=== PATIENT | male | born 1975 | race Caucasian/White ===

== ENCOUNTER → 2017-11-05 | Emergency (ER) | payer MEDICAID, OTHER ==
[~2017-11-05] VITALS: Ht 180.3 cm; Wt 97.0 kg
[~2017-11-05] MED LIST: METH4TAB3 PO
[2017-11-05 12:38] VITALS: BP 158/92
== END | disposition home or self-care (01) ==
LOC: ER 11:29
DX: M25.561 Pain in right knee (principal); I10 Essential (primary) hypertension; M10.9 Gout, unspecified; Z88.8 Allergy status to other drugs, medicaments and biological substances
CPT/HCPCS: 99283

== ENCOUNTER 2017-11-10 09:04 | Outpatient (CLI) | payer MEDICAID, OTHER ==
[2017-11-10 09:00] VITALS: BP 159/75
== END 2017-11-10 10:00 | disposition home or self-care (01) ==
LOC: ORTHO 09:04
PROVIDERS: ATTEND Nurse Practitioner Family
DX: M10.9 Gout, unspecified (principal); I10 Essential (primary) hypertension; Z56.0 Unemployment, unspecified; Z88.8 Allergy status to other drugs, medicaments and biological substances
CPT/HCPCS: 99213; A4467

== ENCOUNTER 2018-09-24 14:21 | Emergency (ER) | payer MEDICAID, OTHER ==
[~2018-09-24] VITALS: Ht 177.8 cm; Wt 100.0 kg
[2018-09-24] MEDS ORDERED: ondansetron/PF 4mg/2ml inj IV ONE (14:55)
[2018-09-24] MEDS ORDERED: normal saline 1000ML IV soln IVB ONE (14:55)
[2018-09-24 15:13] LABS: BASOPHILS % (AUTO) 0.6 % (0-1); EOSINOPHILS % (AUTO) 0.8 % (0-6); HEMATOCRIT 45.8 % (42.0-52.0); LYMPHOCYTES # (AUTO) 1.5 X10'3 (1.1-4.8); LYMPHOCYTES % (AUTO) 25.5 % (21-51); MEAN CORPUSCULAR HGB CONC 34.9 g/dL (33.0-36.5); MEAN CORPUSCULAR VOLUME 94.6 FL (78-98); MEAN PLATELET VOLUME 6.7 FL (7.4-10.4); MONOCYTES # (AUTO) 0.4 X10'3 (0-0.9); MONOCYTES % (AUTO) 6.5 % (2-12); NEUTROPHILS # (AUTO) 3.9 X10'3 (1.8-7.7); NEUTROPHILS % (AUTO) 66.6 % (42-75); PLATELET COUNT 240 X10'3 (140-440); RED BLOOD COUNT 4.84 X10'6 (4.70-6.10); RED CELL DISTRIBUTION WIDTH 12.7 % (11.5-14.5); WHITE BLOOD COUNT 5.9 X10'3 (4.5-11.0)
[2018-09-24 15:27] LABS: CLARITY,URINE CLEAR (Clear); COLOR,URINE YELLOW (Yellow); GLUCOSE, URINE NEGATIVE (Neg); KETONES,URINE TRACE mg/dl (Neg); LEUKOCYTE ESTERASE ,URINE NEGATIVE (Neg); NITRITES, URINE NEGATIVE (Neg); OCCULT BLOOD,URINE NEGATIVE (Neg); PH,URINE 5.5 (4.8-8.0); PROTEIN,URINE TRACE mg/dl (Neg); UROBILINOGEN,URINE 0.2 E.U/dL (0.2-1.0)
[2018-09-24 15:28] LABS: UA COLLECTION TYPE VOIDED
[2018-09-24 15:33] LABS: BACTERIA,URINE 1+ /HPF (Neg); CAL OXALATE CRYSTALS 1+ /HPF (NEGATIVE); MUCUS STRANDS NONE SEEN /LPF (Neg); RBC,URINE 0-2 /HPF (0-2); SQUAMOUS EPITHELIAL CELL,UR FEW /LPF (FEW); WBC,URINE NONE SEEN /HPF (0-4)
[2018-09-24 15:33] LABS: ALANINE AMINOTRANSFERASE 54 U/L (12-78); ALBUMIN 4.4 G/DL (3.4-5.0); ALBUMIN/GLOBULIN RATIO 1.4 (1.1-1.5); ALKALINE PHOSPHATASE 54 IU/L (46-116); ANION GAP 12 (8-16); ASPARTATE AMINO TRANSFERASE 27 U/L (10-37); BLOOD UREA NITROGEN 9 MG/DL (7-18); BUN/CREATININE RATIO 11.1 (5.4-32.0); CALCIUM 9.1 MG/DL (8.5-10.1); CHLORIDE 100 MMOL/L (99-107); CREATININE 0.81 MG/DL (0.60-1.10); GLUCOSE 119 MG/DL (70-104); LIPASE 172 U/L (73-393); POTASSIUM 3.5 MMOL/L (3.5-5.1); SODIUM 137 MMOL/L (135-145); TOTAL CARBON DIOXIDE 25.2 MMOL/L (24-32); TOTAL PROTEIN 7.5 G/DL (6.4-8.2); eGFR > 90 ML/MIN
[2018-09-24] MEDS ORDERED: PANT20TA2 PO (15:52)
[2018-09-24] MEDS ORDERED: ONDA4TAB6 PO (15:52)
[2018-09-24 16:16] VITALS: BP 187/112
== END 2018-09-24 16:18 | disposition home or self-care (01) ==
LOC: ER 14:21
DX: K29.00 Acute gastritis without bleeding (principal); I10 Essential (primary) hypertension; M10.9 Gout, unspecified; Z88.8 Allergy status to other drugs, medicaments and biological substances; Z79.899 Other long term (current) drug therapy; Z56.0 Unemployment, unspecified
CPT/HCPCS: 36415; 74176; 80053; 81001; 83690; 85025; 96374; 99284; J2405; J7030

== ENCOUNTER 2022-10-27 10:41 | Emergency (ER) | payer MEDICAID ==
[~2022-10-27] VITALS: Ht 180.3 cm; Wt 87.0 kg
[~2022-10-27 10:41] MED LIST changes: +ONDA4TAB6 PO; +PANT20TA2 PO
[2022-10-27 11:01] VITALS: BP 139/89
[2022-10-27] MEDS ORDERED: IBUP-1985 PO (13:18)
== END 2022-10-27 13:57 | disposition home or self-care (01) ==
LOC: ER 10:41
DX: M25.511 Pain in right shoulder (principal); I10 Essential (primary) hypertension; M10.9 Gout, unspecified; F41.9 Anxiety disorder, unspecified; Z56.0 Unemployment, unspecified; Z72.89 Other problems related to lifestyle; Z88.8 Allergy status to other drugs, medicaments and biological substances; Z79.899 Other long term (current) drug therapy
CPT/HCPCS: 73030; 99283; A4565